=== PATIENT | male | born 1945 | race Caucasian/White ===

== ENCOUNTER 2016-05-16 01:05 | Inpatient (IN) | payer OTHER ==
[2016-05-16] MEDS ORDERED: LR 1,000 ML IV ONE (05:57)
[2016-05-16] MEDS ORDERED: LIDOCAINE 1% 5 ML SDV ID PRN (05:57)
[2016-05-16 06:17] LABS: INR 1.13 (0.83-1.16); PROTIME(PATIENT) 14.4 SEC (12.0-15.0)
[2016-05-16] MEDS ORDERED: BUPIVACAINE/EPI 0.25% 30 ML SDV ONE (06:35)
[2016-05-16] MEDS ORDERED: THROMBIN (RECOMBINANT) 5,000 UNIT VIAL TP ONE ×2 (06:35→09:02)
[2016-05-16] MEDS ORDERED: BACITRACIN 50,000 UNITS/10 ML SYR IRR ONE ×2 (06:36→09:34)
[2016-05-16] MEDS ORDERED: ROCURONIUM 50 MG/5 ML VIAL ONE (06:54)
[2016-05-16] MEDS ORDERED: DEXAMETHASONE 4 MG/ML VIAL ONE ×2 (06:54)
[2016-05-16] MEDS ORDERED: fentaNYL 100 MCG/2 ML INJ ONE ×3 (06:54→10:49)
[2016-05-16] MEDS ORDERED: PROPOFOL/EMULSION 500 MG/50 ML BOTTLE IV ONE ×2 (06:54→08:36)
[2016-05-16] MEDS ORDERED: METOCLOPRAMIDE 10 MG/2 ML VIAL ONE (06:54)
[2016-05-16] MEDS ORDERED: REMIFENTANIL HCL 1 MG VIAL ONE ×2 (06:54→08:36)
[2016-05-16] MEDS ORDERED: LIDOCAINE 2% 100 MG/5 ML SYR IVP ONE (06:55)
[2016-05-16] MEDS ORDERED: CEFAZOLIN 2 GM/DEXTROSE/100 ML BAG IV ONE (07:00)
[2016-05-16] MEDS ORDERED: MIDAZOLAM 2 MG/2 ML VIAL ONE (07:09)
[2016-05-16] MEDS ORDERED: ACETAMINOPHEN 325 MG TAB PO PRN (10:35)
[2016-05-16] MEDS ORDERED: BISACODYL 10 MG SUPP PR PRN (10:35)
[2016-05-16] MEDS ORDERED: ONDANSETRON 4 MG/2 ML VIAL IVP PRN (10:35)
[2016-05-16] MEDS ORDERED: LACTULOSE 20 GM/30 ML UDCUP PO PRN (10:35)
[2016-05-16] MEDS ORDERED: HYDROmorphONE/DILAUDID 1 MG/ML SYR IVP PRN (10:35)
[2016-05-16] MEDS ORDERED: METHOCARBAMOL 750 MG TAB PO PRN (10:35)
[2016-05-16] MEDS ORDERED: ONDANSETRON DISINTEGRATING 4 MG TAB PO PRN (10:35)
[2016-05-16] MEDS ORDERED: DIAZEPAM 10 MG/2 ML SYR IVP PRN (10:35)
[2016-05-16] MEDS ORDERED: HYDROCODONE/APAP 10/325 TAB PO PRN (10:35)
[2016-05-16] MEDS ORDERED: diphenhydrAMINE 25 MG CAP PO PRN (10:35)
[2016-05-16] MEDS ORDERED: MAGNESIUM HYDROXIDE 30 ML UDCUP PO PRN (10:35)
--- NOTE | 2016-05-16 10:41 | POSTOPPROG ---
Post Op Note Date of Operation: 05/16/16 Surgeon: Zach Wagner Feed Handler: Nicholas Anesthesiologist: Manjula Anesthesia: GET(General Endotracheal) Pre-op Diagnosis: cervical stenosis Post-op Diagnosis: same Indication: neck pain, myelopathy Procedure: C3/4, 4/5, 5/6 ACDF Findings: DJD/stenosis Inf/Abcess present in the surg proc area at time of surgery?: No EBL: Minimal (< 50 ml) Complications: None Drains: Cruzito Villanueva
--- NOTE | 2016-05-16 10:42 | SOAPPROG ---
CHARLEY Progress Note Assessment/Plan: Assessment: 70 yo M sp C3-6 ACDF Plan: stable hard collar for 6 weeks PT/OT please call with neuro changes pt seen by DR Estevez in pacu 05/16/16 10:41 Subjective: + neck pain, no arm pain. Objective: PT 14.4 SEC (12.0-15.0) 05/16/16 06:00 INR 1.13 (0.83-1.16) 05/16/16 06:00 somnolent PERRL, no facial droop SHAMIKA x 4 + light touch C/D/I ICD10 Worksheet Patient Problems: Problems Problem Status Diagnosed Cervical vertebral fusion Acute Chest pain Acute - ICD10 Problem Qualifiers (1) Cervical vertebral fusion
[2016-05-16] MEDS ORDERED: NS W/ 20 KCl/L 1,000 ML IV SCH (10:45)
[2016-05-16] MEDS ORDERED: DIAZEPAM 10 MG/2 ML SYR ONE (11:14)
--- NOTE | 2016-05-16 11:29 | DX ---
Fluoroscopy Provided for Cervical Spine Surgery May 16, 2016 Indication: Localization for anterior cervical spine fusion. Technique: 10.8 seconds of fluoroscopy time utilized. Cumulative dose: 0.85 mGy. Findings: Three crosstable lateral intraoperative spot films were obtained. The initial spot film re veals a radiopaque localizer anterior to the C4-C5 disk space. Two subsequent films reveal placement of an anterior cervical diskectomy and fusion construct extending from C3 to C6. Impression: Fluoroscopy provided for intraoperative localization.
[2016-05-16] MEDS: DIAZEPAM 5 MG TAB PO PRN ×2 (12:40→21:24)
--- NOTE | 2016-05-16 13:43 | GOP ---
[f rep st] OPERATIVE REPORT DATE OF OPERATION: 05/16/2016 SURGEON: Zach Wagner MD MARKETING SYSTEMS ANALYST: Harsha Peterson. ANESTHESIA: General endotracheal. PREOPERATIVE DIAGNOSIS: 1. Progressive cervical spondylitic myelopathy. 2. Multilevel cervical spondylosis and severe spinal stenosis with spinal cord compression. POSTOPERATIVE DIAGNOSIS: 1. Progressive cervical spondylitic myelopathy. 2. Multilevel cervical spondylosis and severe spinal stenosis with spinal cord compression. PROCEDURE PERFORMED: Mini open exposure for C3-4, C4-5, and C5-6 complete anterior cervical diskectomy and arthrodesis with structural PEEK interbody spacers and local autograft at each level and placement of an L&K CastleLoc-P anterior cervical plate from C3 through C6 with self-drilling screws, partial C4 and C5 vertebral corpectomies for decompression of spinal canal, use of intraoperative microscopy and fluoroscopy. FINDINGS: ESTIMATED BLOOD LOSS: 75 cc. INDICATIONS: The patient is a 70-year-old man with severe multilevel cervical spondylosis and spinal stenosis with spinal cord compression and myelopathic symptoms. He also has very poor sagittal alignment (cervical lordosis) and presents now for multilevel cervical decompression, stabilization, and realignment. He also has fairly significant degenerative disk disease and spinal stenosis at the C6-7 level, but I do not think this is symptomatic at this time, and in an effort to minimize the potential complications associated with this surgery, we are not extending the surgery down to the C6-7 level. The patient does understand that there is a possibility he could require further surgery at that level down the road. DESCRIPTION OF PROCEDURE: After informed consent was obtained, the patient was taken to the operating room and placed in the supine position with the head in the Halter retractor system after baseline neuromonitoring signals were obtained (somatosensory evoked potentials and motor evoked potentials). The anterior cervical region was then prepped and draped in a sterile fashion after fluoroscopic localization of the correct levels in the ideal location for the skin incision. Following this, the subcutaneous and intramuscular tissues were infiltrated with local anesthesia, and a horizontal linear incision was then created at the level of the C4-5 interspace. This was carried through the platysmal layer using the monopolar electrocautery and carried in the avascular plane between the sternocleidomastoid and carotid sheath laterally and the strap muscles, trachea, and esophagus medially down to the prevertebral fascia, which was carefully incised with Metzenbaum scissors. The C3-4, C4-5, and C5-6 interspaces were again identified and re-verified using intraoperative fluoroscopy. There were extremely large osteophytes that required extensive removal and dissection in order to even access the disk spaces, which were then re-verified using intraoperative fluoroscopy. Care was taken to stay out of the C6-7 interspace so as to not hasten degeneration. The exposure took approximately 2-3 times as long as normal due to the extensive osteophytes and required dissection and bone removal. Following this, the distraction pins were serially inserted first at C3-4, then C4-5, then C5-6 during which time complete diskectomies were performed with preparation of endplates and removal of the posterior longitudinal ligament at each level. Bilateral foraminotomies were also performed, along with removal of the posteriorly protruding osteophytes. Again, these osteophytes were much larger than normal and this required very meticulous dissection under high-power microscopy, and in order to adequately decompress the spinal canal and cord. This took approximately 2- 3 times as long as normal, again, and was more difficult, but we did achieve an excellent decompression. The wound and disk spaces were copiously irrigated with antibiotic irrigation and under fluoroscopic image guidance structural PEEK interbody spacers packed with local autograft from the osteophytectomies were then placed in the interspaces individually. Following verification of good position, the distraction was removed and an appropriately sized CastleLoc- P L&K anterior cervical plate was then placed and secured from C3 through C6 with an appropriate amount of lordosis. Because we had to do such extensive drilling of the large anteriorly protruding osteophytes, there was not a whole lot of cortical bone in some of the locations where the screws were placed, and did not achieve that great of screw purchase. We did the best we could. Following verification of good position of the plate screws and interbody spacers, the wound was again copiously irrigated, and the residual local autograft was then gently placed in the anterior hole of the plate at each of the 3 levels. A drain was then placed. The subcutaneous and intramuscular tissues were re-infiltrated with local anesthesia, and the wound was closed in a layered fashion using interrupted Vicryl sutures followed by Steri-Strips on the skin. COMPLICATIONS: None. DISPOSITION: The patient was extubated, and transferred to the recovery room in stable condition. It was explained to the patient's significant other that I want him in a rigid collar for 6 weeks followed by a soft collar for 6 weeks given the high risk for screw backout or nonunion or hardware failure, given the patient's significant disease and required bone removal and lack of cortical bone in some of the places where the screws were placed. /[id number]/MODL MTDD
[2016-05-16] MEDS: POLYETHYLENE GLYCOL 3350 17 GM PKT PO SCH ×2 (15:47→20:32)
[2016-05-16] MEDS: OXYCODONE/APAP 5/325 TAB PO PRN ×2 (17:24→21:24)
[2016-05-16] MEDS: ATORVASTATIN CALCIUM 40 MG TAB PO SCH (17:24)
[2016-05-16] MEDS: GABAPENTIN 400 MG CAP PO SCH (20:23)
[2016-05-16] MEDS: FAMOTIDINE 20 MG TAB PO SCH (20:24)
[2016-05-16] MEDS: SENNOSIDES/DOCUSATE SODIUM TAB PO SCH (20:25)
[2016-05-16] MEDS ORDERED: FAMOTIDINE 20 MG/NACL 50 ML IV SCH (21:00)
[2016-05-17] MEDS: DIAZEPAM 5 MG TAB PO PRN ×2 (07:16→15:29)
[2016-05-17] MEDS: DILTIAZEM CD 180 MG CAP PO SCH (08:59)
[2016-05-17] MEDS: CHOLECALCIFEROL VIT D3 1,000 UNITS TAB PO SCH (09:00)
[2016-05-17] MEDS: FAMOTIDINE 20 MG TAB PO SCH ×2 (09:00→21:02)
[2016-05-17] MEDS: LOSARTAN POTASSIUM 50 MG TAB PO SCH (09:01)
[2016-05-17] MEDS: ASCORBIC ACID 500 MG TAB PO SCH (09:01)
[2016-05-17] MEDS: TRIAMTERENE/HCTZ 37.5/25 1 EACH TAB PO SCH (09:01)
[2016-05-17] MEDS: FERROUS SULFATE 325 MG TAB PO SCH (09:03)
[2016-05-17] MEDS: SENNOSIDES/DOCUSATE SODIUM TAB PO SCH ×2 (09:06→20:45)
[2016-05-17] MEDS: POLYETHYLENE GLYCOL 3350 17 GM PKT PO SCH ×3 (09:06→21:02)
[2016-05-17] MEDS: Fenofibrate,Micronized [Fenofibrate] 200 MG PO SCH ×2 (09:27→16:13)
--- NOTE | 2016-05-17 10:19 | DX ---
Cervical spine upright AP and lateral 0932 hours. History: Postop fusion. Findings: Anterior cervical fusion plate is in good position from C3 through C6 along with disk repla cement material. There is no subluxation. Precervical soft tissue swelling is noted. A drain is seen along the left anterior paravertebral soft tissues. Moderate to marked intervertebral disk space narr owing with hypertrophic osteophytes are noted at C6-C7 and at C7-T1 along with some facet hypertrophy . Impression: 1. Good alignment of anterior cervical fusion plate from C3 through C6. 2. Mild precervical soft tissue swelling as expected postoperatively. 3. Moderate to marked degenerative disk disease noted at C6-C7 and at C7-T1 along with facet hypertro phy.
--- NOTE | 2016-05-17 11:23 | NEUSURGPN ---
Date of Surgery: 05/16/16 Post Op Day: 1 Assessment/Plan: Doing well POD #1 s/p C3-6 ACDF Swallowing ok at this time Unchanged bilateral finger paresthesias Plan: PT/OT/St Continue NABEEL Lovenox POD #[address] Estevez Subjective: sitting up in bed,eating breakfast. feeling fine no change in bilateral finger paresthesias Objective: post op xrays 05/27/16 show stable position of C3-6 hardware/grafts Neuro: KEARNEY, sens +LT with unchanged bilateral finger paresthesias and mild senior operations manager weakness Dressing: CDI NABEEL: 80ml Neurosurgery Physical Exam - Vitals, I&O, Labs I and O 05/16/16 05/17/16 05/18/16 05:59 05:59 05:59 Intake Total 2675 Output Total 355 Balance 2320 Intake: Oral (ml) 400 IV Intake (ml) 2225 IV Infused (ml) 50 ceFAZolin 1 GM/DEXTROSE 50 50 ml @ 200 mls/hr IV Q8H [facility] Rx#:[id number] Output: Urine (ml) 250 Bedside Commode 250 Estimated Blood Loss (ml) 25 Wound Drainage (ml) 80 #1 Neck Cruzito Villanueva 80 Other: Output Comment Diapers/Briefs pt feels he is constantly urinating not a new issue Vital Signs Temp Pulse Resp BP Pulse Ox 36.8 C 81 16 146/81 H 93 05/17/16 07:39 05/17/16 07:39 05/17/16 07:39 05/17/16 07:39 05/17/16 07:39 ICD10 Worksheet Patient Problems: Problems Problem Status Diagnosed Cervical vertebral fusion Acute Chest pain Acute
[2016-05-17] MEDS: HEPARIN 5,000 UNIT/0.5 ML SYR SC SCH ×2 (15:21→21:04)
[2016-05-17] MEDS: ATORVASTATIN CALCIUM 40 MG TAB PO SCH (18:48)
[2016-05-17] MEDS: OXYCODONE/APAP 5/325 TAB PO PRN (19:08)
[2016-05-17] MEDS: GABAPENTIN 400 MG CAP PO SCH (21:02)
[2016-05-17 23:17] VITALS: RESP 16
[2016-05-18] MEDS: HEPARIN 5,000 UNIT/0.5 ML SYR SC SCH (05:05)
[2016-05-18 07:59] VITALS: BP 145/77; TEMP 97.8; O2SAT 93
[2016-05-18] MEDS: OXYCODONE/APAP 5/325 TAB PO PRN (08:42)
--- NOTE | 2016-05-18 09:17 | NEUSURGPN ---
Date of Surgery: 05/16/16 Post Op Day: 2 Assessment/Plan: Assessment: 70 yo male that is POD #2 s/p C3-6 ACDF Plan: -pt states pain is doing well with current pain plan -tolerating collar -PT/OT-CPM -ok from Dr Estevez for removal of drain-drain removed intact -swallowing ok at this time -unchanged bilateral finger paresthesias -lovenox POD #[address] Estevez -call with any questions or concerns -take medications as directed -follow up in 2-3 weeks for a recheck and evaluation Subjective: Awake and alert. NAD. Eating/drinking and voiding. No f/c/n/v/d. No pressley/neck/ chest/abd or gu complaints. Objective: AAO x 3, PERRLA/EOMI no droop CN 2-12 grossly intact +lt touch with unchanged bilateral finger paresthesias and mild rental agent weakness other nam 5/5 bilat dressing: CDI NABEEL removed intact and easily removed without resistance Neuro Check Frequency: per routine Urinary Catheter in Place: No - Physician Discussed Patient with DrNicolás: Kristy Neurosurgery Physical Exam - Vitals, I&O, Labs I and O 05/17/16 05/18/16 05/19/16 05:59 05:59 05:59 Intake Total 2675 Output Total 355 716 Balance 2320 -716 Intake: Oral (ml) 400 IV Intake (ml) 2225 IV Infused (ml) 50 ceFAZolin 1 GM/DEXTROSE 50 50 ml @ 200 mls/hr IV Q8H [facility] Rx#:[id number] Output: Urine (ml) 250 676 Bedside Commode 250 675 Toilet 1 Estimated Blood Loss (ml) 25 Wound Drainage (ml) 80 40 #1 Neck Cruzito Villanueva 80 40 Other: Output Comment Diapers/Briefs pt feels he is constantly urinating not a new issue Toilet reported by patient Number of Voids Diapers/Briefs 4 Number of Stools Toilet 1 Vital Signs Temp Pulse Resp BP Pulse Ox 36.6 C 75 16 145/77 H 93 05/18/16 07:58 05/18/16 07:58 05/18/16 07:58 05/18/16 07:58 05/18/16 07:58 ICD10 Worksheet Patient Problems: Problems Problem Status Diagnosed Cervical vertebral fusion Acute Chest pain Acute
[2016-05-18] MEDS: DILTIAZEM CD 180 MG CAP PO SCH (09:22)
[2016-05-18] MEDS: FERROUS SULFATE 325 MG TAB PO SCH (09:22)
[2016-05-18] MEDS: CHOLECALCIFEROL VIT D3 1,000 UNITS TAB PO SCH (09:22)
[2016-05-18] MEDS: LOSARTAN POTASSIUM 50 MG TAB PO SCH (09:24)
[2016-05-18] MEDS: FAMOTIDINE 20 MG TAB PO SCH (09:24)
[2016-05-18] MEDS: ASCORBIC ACID 500 MG TAB PO SCH (09:24)
[2016-05-18] MEDS: TRIAMTERENE/HCTZ 37.5/25 1 EACH TAB PO SCH (09:24)
[2016-05-18] MEDS: Fenofibrate,Micronized [Fenofibrate] 200 MG PO SCH (09:29)
[2016-05-18 09:31] VITALS: PULSE 80
[2016-05-18] MEDS: SENNOSIDES/DOCUSATE SODIUM TAB PO SCH (09:31)
[2016-05-18] MEDS: POLYETHYLENE GLYCOL 3350 17 GM PKT PO SCH (09:31)
[2016-05-18] MEDS: DIAZEPAM 5 MG TAB PO PRN (12:27)
[2016-05-19] MEDS ORDERED: ENOXAPARIN 40 MG/0.4 ML SYR SC SCH (09:00)
== END 2016-05-18 13:44 | disposition home or self-care (01) | DRG 472 ==
LOC: F3N 05:14
PROVIDERS: ADMIT Neurological Surgery; ATTEND Neurological Surgery
DX: M48.02 Spinal stenosis, cervical region (principal); M47.12 Other spondylosis with myelopathy, cervical region
CPT/HCPCS: 97161-GP; 97165-GO; 97535-GO; C1713; G8978-GP-CI; G8979-GP-CI; G8980-GP-CI; G8987-GO-CJ; G8988-GO-CI; G8989-GO-CI; G8994-GO-CI; G8995-GO-CI; J0690; J1100; J2001; J2250; J2704; J2765; J3010

== ENCOUNTER → 2016-06-07 | Outpatient (CLI) | payer OTHER ==
--- NOTE | 2016-06-07 09:44 | DX ---
Cervical Spine, Two views in a neck collar History: Follow up fusion. M 43.22 Comparison: May 17, 2016 Findings: Alignment is stable and anatomic. An anterior compression plate with transvertebral body sc rews and interbody bone plugs between C3 and C6 are in stable position with intact hardware and stabl e bone plugs. Prevertebral soft tissue swelling is significantly improved and a prevertebral surgical drain has been removed. Degenerative changes at the C6-C7 level are stable. Impression: Improving prevertebral soft tissue swelling. Stable anterior fusion construct.
== END ==
LOC: FIMAGING 09:01
PROVIDERS: ATTEND Physician Assistant Surgical
DX: Z09 Encounter for follow-up examination after completed treatment for conditions other than malignant neoplasm (principal); Z98.1 Arthrodesis status

== ENCOUNTER 2016-07-23 11:01 | Inpatient (IN) | payer OTHER ==
[2016-07-17 10:07] LABS: % IMMATURE GRANULYOCYTES 0.6 % (0.0-1.1); ABSOLUTE IMMATURE GRANULOCYTES 0.05 10^3/uL (0.00-0.10); ADD DIFF? NO; ADD MORPH? NO; ADD SCAN? NO; ATYPICAL LYMPHOCYTE FLAG 10 (0-99); FRAGMENT RBC FLAG 0 (0-99); HEMATOCRIT 42.4 % (40.0-51.0); HEMOGLOBIN 14.2 g/dL (13.7-17.5); LEFT SHIFT FLG 0 (0-99); LIPEMIA HEMOLYSIS FLAG 80 (0-99); MEAN CELL HEMOGLOBIN 29.2 pg (27.9-34.1); MEAN CELL HEMOGLOBIN CONCENTR. 33.5 g/dL (32.4-36.7); MEAN CELL VOLUME 87.2 fL (81.5-99.8); MEAN PLATELET VOLUME 10.1 fL (8.7-11.7); PLATELET CLUMPS FLAG 0 (0-99); PLATELET COUNT 305 10^3/uL (150-400); RED BLOOD CELL COUNT 4.86 10^6/uL (4.40-6.38); RED CELL DISTRIBUTION WIDTH 12.9 % (11.5-15.2)
[2016-07-17 10:21] LABS: ANION GAP 12 mEq/L (8-16); CARBON DIOXIDE 25 mEq/l (22-31); CHLORIDE 103 mEq/L (97-110); CREATININE 1.7 mg/dL (0.7-1.3); GLOMERULAR FILTRATION RATE 40; GLUCOSE 147 mg/dL (70-100); POTASSIUM 4.2 mEq/L (3.5-5.2); SODIUM 140 mEq/L (134-144)
[~2016-07-23 11:01] MED LIST: ceFAZolin 2 GM/DEXTROSE 100 ML IV ONE; fentaNYL 100 MCG/2 ML INJ IT ONE; morphINE PF 5 MG/10 ML INJ IT ONE
[2016-07-23] MEDS ORDERED: LR 1,000 ML IV ONE (11:41)
[2016-07-23] MEDS ORDERED: LIDOCAINE 1% 5 ML SDV ID PRN (11:41)
[2016-07-23] MEDS ORDERED: CEFAZOLIN 2 GM/DEXTROSE/100 ML BAG IV ONE (12:08)
[2016-07-23 12:20] LABS: INR 1.18 (0.83-1.16)
[2016-07-23] MEDS ORDERED: METOCLOPRAMIDE 10 MG/2 ML VIAL ONE (14:10)
[2016-07-23] MEDS ORDERED: REMIFENTANIL HCL 1 MG VIAL ONE (14:10)
[2016-07-23] MEDS ORDERED: DEXAMETHASONE 4 MG/ML VIAL ONE ×2 (14:10)
[2016-07-23] MEDS ORDERED: PROPOFOL/EMULSION 500 MG/50 ML BOTTLE IV ONE ×2 (14:10→16:36)
[2016-07-23] MEDS ORDERED: ROCURONIUM 100 MG/10 ML VIAL ONE (14:10)
[2016-07-23] MEDS ORDERED: LIDOCAINE 2% 100 MG/5 ML SYR ONE (14:10)
[2016-07-23] MEDS ORDERED: BUPIVACAINE/EPI 0.5% 30 ML SDV ONE (14:40)
[2016-07-23] MEDS ORDERED: THROMBIN (RECOMBINANT) 5,000 UNIT VIAL TP ONE ×2 (14:40→16:40)
[2016-07-23] MEDS ORDERED: BUPIVACAINE 0.25% 30 ML SDV ONE ×2 (14:40→15:04)
[2016-07-23] MEDS ORDERED: BACITRACIN 50,000 UNITS/10 ML SYR IRR ONE (14:41)
[2016-07-23] MEDS ORDERED: MIDAZOLAM 2 MG/2 ML VIAL ONE (14:54)
[2016-07-23] MEDS ORDERED: CITRATE DEXTROSE SOLN 500 ML BAG ONE (15:04)
[2016-07-23] MEDS ORDERED: PHENYLEPHRINE 10 MG/ML SDV ONE (16:19)
[2016-07-23] MEDS ORDERED: fentaNYL 100 MCG/2 ML INJ ONE (17:45)
[2016-07-23] MEDS ORDERED: morphINE PF 10 MG/10 ML INJ ONE (17:45)
[2016-07-23] MEDS ORDERED: SUGAMMADEX SODIUM 200 MG/2 ML VIAL IVP ONE (18:36)
[2016-07-23] MEDS ORDERED: ONDANSETRON DISINTEGRATING 4 MG TAB PO PRN (19:02)
[2016-07-23] MEDS ORDERED: LACTULOSE 20 GM/30 ML UDCUP PO PRN (19:02)
[2016-07-23] MEDS ORDERED: DIAZEPAM 10 MG/2 ML SYR IVP PRN (19:02)
[2016-07-23] MEDS ORDERED: DIAZEPAM 5 MG TAB PO PRN (19:02)
[2016-07-23] MEDS ORDERED: ACETAMINOPHEN 325 MG TAB PO PRN (19:02)
[2016-07-23] MEDS ORDERED: MAGNESIUM HYDROXIDE 30 ML UDCUP PO PRN (19:02)
[2016-07-23] MEDS ORDERED: POLYETHYLENE GLYCOL 3350 17 GM PKT PO PRN (19:02)
[2016-07-23] MEDS ORDERED: MAG HYDROX/AL HYDROX/SIMETH 30 ML UDCUP PO PRN (19:02)
[2016-07-23] MEDS ORDERED: diphenhydrAMINE 25 MG CAP PO PRN (19:02)
[2016-07-23] MEDS ORDERED: ONDANSETRON 4 MG/2 ML VIAL IVP PRN (19:02)
[2016-07-23] MEDS ORDERED: HYDROmorphONE/DILAUDID 1 MG/ML SYR IVP PRN (19:02)
[2016-07-23] MEDS ORDERED: BISACODYL 10 MG SUPP PR PRN (19:02)
[2016-07-23] MEDS ORDERED: PROCHLORPERAZINE MALEATE 10 MG TAB PO PRN (19:02)
[2016-07-23] MEDS ORDERED: NS W/ 20 KCl/L 1,000 ML IV SCH (19:15)
--- NOTE | 2016-07-23 19:18 | POSTOPPROG ---
Post Op Note Date of Operation: 07/23/16 Surgeon: Zach Wagner Installation Helper: Donny Villareal PA-C, Chery Baum PA-C Anesthesiologist: Manjula Anesthesia: GET(General Endotracheal) Pre-op Diagnosis: lumbar degenerative disc disease Post-op Diagnosis: same Indication: pain, radiculopathy Procedure: L4-S1 TLIF and posterior fusion Findings: Please see Dr. Wagner's operative report Inf/Abcess present in the surg proc area at time of surgery?: No Depth: Organ Space EBL: 100-500 Complications: none Drains: Cruzito Villanueva Specimen(s): none PA Addendum - Addendum .: S: Pt awake in PACU, denies pain O: AAOx3 NAD VSS MAEx4 Motor 5/5 BUE/BLE +LT Incision dressed A: 70 yo M s/p L4-S1 TLIF and posterior fusion P: PT/OT Pain management TEDs, SCDs, lovenox in AM Post op xrays pending Brace to be fitted by Jeramy in AM, to be worn when OOB Call NS with any issues D/w Dr Estevez
--- NOTE | 2016-07-23 20:03 | GOP ---
[f rep st] OPERATIVE REPORT DATE OF OPERATION: 07/23/2016 SURGEON: Zach Wagner MD TREE DEADENER: Donny Baum ANESTHESIA: General endotracheal. PREOPERATIVE DIAGNOSIS: 1. Severe multilevel lumbar degenerative joint disease. 2. Severe left greater than right lateral recess and neuroforaminal encroachment. 3. Intractable low back pain. 4. Intractable left lower extremity radiculopathy. 5. Failed conservative care. POSTOPERATIVE DIAGNOSIS: 1. Severe multilevel lumbar degenerative joint disease. 2. Severe left greater than right lateral recess and neuroforaminal encroachment. 3. Intractable low back pain. 4. Intractable left lower extremity radiculopathy. 5. Failed conservative care. PROCEDURE PERFORMED: Left-sided L4-5 and L5-S1 far lateral transpedicular decompression with L4 thr ough S1 posterior segmental (pedicle screw) fixation, and posterolateral fusion with local autograft and bone morphogenic protein. L4-5 and L5-S1 posterior/transforaminal lumbar interbody fusion with 2 structural PEEK interbody spacers with local autograft and bone morphogenic protein. Use of intr aoperative microscopy, fluoroscopy, and computer volumetric stereotactic navigation with intraoperat jesus neurophysiologic testing. Injection of intrathecal narcotic, analgesics, and subcutaneous and i ntramuscular local anesthesia for postoperative pain control. FINDINGS: ESTIMATED BLOOD LOSS: 250 cc. INDICATIONS: The patient is a 70-year-old male with intractable low back pain and left lower extrem ity radicular discomfort, who has failed to improve with extensive conservative care secondary to mu ltilevel severe degenerative joint disease, and neuroforaminal and lateral recess impingement requir ing destabilizing decompression at the L4-5 and L5-S1 levels, and instrumentation and fusion. The p atient understands there is no guarantee this will result in resolution of his symptoms and could ev en make them worse. DESCRIPTION OF PROCEDURE: After informed consent was obtained, the patient was taken to the operati ng room and placed in the prone position on the Cruzito table. The lumbosacral area was prepped and draped in a sterile fashion. After fluoroscopic localization of the correct levels, the subcutaneo us and intramuscular tissues were infiltrated with local anesthesia. A midline linear incision was then created over the L4-S1 spinous processes. This was carried down to the fascial layer, which was incised using monopolar electrocautery, and carried in a subperioste al plane along the spinous processes and out the laminae bilaterally. Intraoperative fluoroscopy wa s again utilized to verify the correct levels. Following this, the dissection was carried out over the facet joints. After re-verifying the correc t levels, the microscope was brought in and under high-power microscopic visualization the left L4-5 and L5-S1 facet joints were completely unroofed and wide decompressions were performed of the L4-L5 and S1 neuroforamen and lateral recesses, as well as the central canal. Following adequate decompression and meticulous hemostasis, the [employer] neuronavigational system was brought in and using computer volumetric stereotactic navigation, pedicle screws were placed at the L4, L5, and S1 levels bilaterally. Each individual screw was tested neurophysiologically with mono polar electrostimulation and interpretation of the potentials by the surgeon. The left S1 screw sti mulated slightly low at 14 milliamperes, and the medial border of the pedicle was visualized under h igh-power microscopy and noted to be good. Based on the intraoperative fluoroscopy, as well as the neurostimulation, I felt that it was in the patient's best interest to leave this in place, as well as a slightly lateral-appearing screw at L5, which was removed and replaced. Following this, serial distraction was created first across the L5-S1 level, then the L4-5 level dur ing which time, complete diskectomies were performed with preparation of the endplates and placement of 2 structural PEEK interbody spacers with local autograft and bone morphogenic protein for L4-5 a nd L5-S1 posterior/transforaminal lumbar interbody fusions. Longer rods were then placed spanning L 4-S1 with a slight amount of compression across the interspaces in order to facilitate bony union an d to minimize the potential for posterior graft migration. The wound was then copiously irrigated with antibiotic irrigation. Meticulous hemostasis was again achieved. Following re-verification of good position of the screws, rods, and interbody spacers usi ng biplanar fluoroscopy, the remaining facet joints and laminae were extensively decorticated, and t he residual local autograft along with bone morphogenic protein and morselized allograft was placed out laterally for a posterolateral fusion from L4-S1. 200 mcg of Duramorph along with 50 mcg of fentanyl were injected intrathecally for postoperative britany n control. The subcutaneous and intramuscular tissues were re-infiltrated with local anesthesia. A drain was placed, and the wound was closed in a layered fashion using interrupted Vicryl sutures, f ollowed by Steri-Strips on the skin. COMPLICATIONS: None. DISPOSITION: The patient is currently in the process of being repositioned for extubation. /[id number]/MODL
[2016-07-23] MEDS ORDERED: FAMOTIDINE 20 MG/NACL 50 ML IV SCH (21:00)
[2016-07-23] MEDS: POLYETHYLENE GLYCOL 3350 17 GM PKT PO SCH (21:47)
[2016-07-23] MEDS: GABAPENTIN 400 MG CAP PO SCH (21:47)
[2016-07-23] MEDS: morphINE SR 15 MG TAB PO SCH (21:47)
[2016-07-23] MEDS: SENNOSIDES/DOCUSATE SODIUM TAB PO SCH (21:47)
[2016-07-24 04:59] LABS: ABSOLUTE IMMATURE GRANULOCYTES 0.13 10^3/uL (0.00-0.10); ADD DIFF? NO; ADD MORPH? NO; ADD SCAN? NO; ATYPICAL LYMPHOCYTE FLAG 0 (0-99); FRAGMENT RBC FLAG 0 (0-99); HEMOGLOBIN 11.4 g/dL (13.7-17.5); LEFT SHIFT FLG 0 (0-99); LIPEMIA HEMOLYSIS FLAG 80 (0-99); MEAN CELL HEMOGLOBIN 30.2 pg (27.9-34.1); MEAN CELL HEMOGLOBIN CONCENTR. 33.5 g/dL (32.4-36.7); MEAN CELL VOLUME 90.2 fL (81.5-99.8); MEAN PLATELET VOLUME 10.6 fL (8.7-11.7); PLATELET CLUMPS FLAG 0 (0-99); PLATELET COUNT 243 10^3/uL (150-400); RED BLOOD CELL COUNT 3.77 10^6/uL (4.40-6.38)
[2016-07-24 05:28] LABS: ANION GAP 9 mEq/L (8-16); CARBON DIOXIDE 24 mEq/l (22-31); CHLORIDE 106 mEq/L (97-110); CREATININE 1.7 mg/dL (0.7-1.3); GLOMERULAR FILTRATION RATE 40; GLUCOSE 166 mg/dL (70-100); POTASSIUM 4.9 mEq/L (3.5-5.2); SODIUM 139 mEq/L (134-144)
[2016-07-24] MEDS: METHOCARBAMOL 750 MG TAB PO PRN ×3 (06:21→21:06)
[2016-07-24] MEDS: OXYCODONE/APAP 5/325 TAB PO PRN ×2 (06:21→12:52)
--- NOTE | 2016-07-24 07:26 | SOAPPROG ---
SOAP Progress Note Assessment/Plan: Assessment: 70 yo male POD #1 sp L4-S1 fusion pain well controlled doing well Plan: Patient was seen by Dr. Knox this AM PT/OT LSO when out of bed Continue NABEEL to bulb suction Lumbar xrays today Lovenox starts today. 07/24/16 07:24 Subjective: sitting up in bed, doing well, pain well controlled no new numbness or tingling Objective: Vital Signs Temp Pulse Resp BP Pulse Ox 36.9 C 83 16 121/74 H 94 07/24/16 03:14 07/24/16 03:14 07/24/16 03:14 07/24/16 03:14 07/24/16 03:14 Laboratory Results 07/24/16 04:35 07/24/16 04:35 07/23/16 07/24/16 07/25/16 05:59 05:59 05:59 Intake Total 2110 Output Total 490 40 Balance 1620 -40 PT 15.0 SEC (12.0-15.0) 07/23/16 11:45 INR 1.18 (0.83-1.16) H 07/23/16 11:45 Neuro: KEARNEY, sensation +LT NABEEL: 40 ml this AM ICD10 Worksheet Patient Problems: Problems Problem Status Onset Cervical vertebral fusion Acute Chest pain Acute
[2016-07-24] MEDS: GABAPENTIN 400 MG CAP PO SCH ×3 (07:51→21:06)
[2016-07-24] MEDS: POLYETHYLENE GLYCOL 3350 17 GM PKT PO SCH ×3 (07:51→21:06)
[2016-07-24] MEDS: FAMOTIDINE 20 MG TAB PO SCH ×2 (07:52→21:06)
[2016-07-24] MEDS: VITAMIN B COMPLEX 1 EA CAP/TAB PO SCH (07:52)
[2016-07-24] MEDS: SENNOSIDES/DOCUSATE SODIUM TAB PO SCH ×2 (07:53→21:06)
[2016-07-24] MEDS: ASCORBIC ACID 500 MG TAB PO SCH (07:53)
[2016-07-24] MEDS: morphINE SR 15 MG TAB PO SCH ×2 (07:54→21:06)
[2016-07-24] MEDS: DILTIAZEM CD 180 MG CAP PO SCH (07:54)
[2016-07-24] MEDS: CHOLECALCIFEROL VIT D3 1,000 UNITS TAB PO SCH (07:54)
[2016-07-24] MEDS: TRIAMTERENE/HCTZ 37.5/25 1 EACH TAB PO SCH (07:55)
[2016-07-24] MEDS: Fenofibrate,Micronized [Fenofibrate] 200 MG PO SCH (07:55)
[2016-07-24] MEDS: LOSARTAN POTASSIUM 50 MG TAB PO SCH (08:06)
[2016-07-24] MEDS: ENOXAPARIN 40 MG/0.4 ML SYR SC SCH (08:27)
[2016-07-24] MEDS: ATORVASTATIN CALCIUM 40 MG TAB PO SCH (15:18)
[2016-07-25] MEDS: OXYCODONE/APAP 5/325 TAB PO PRN ×3 (00:29→11:25)
[2016-07-25] MEDS: METHOCARBAMOL 750 MG TAB PO PRN ×2 (05:48→11:25)
[2016-07-25 08:04] VITALS: BP 110/69; RESP 18; TEMP 97.9; O2SAT 94
[2016-07-25] MEDS: GABAPENTIN 400 MG CAP PO SCH (09:02)
[2016-07-25] MEDS: ASCORBIC ACID 500 MG TAB PO SCH (09:03)
[2016-07-25] MEDS: VITAMIN B COMPLEX 1 EA CAP/TAB PO SCH (09:03)
[2016-07-25] MEDS: LOSARTAN POTASSIUM 50 MG TAB PO SCH (09:03)
[2016-07-25] MEDS: CHOLECALCIFEROL VIT D3 1,000 UNITS TAB PO SCH (09:03)
[2016-07-25] MEDS: TRIAMTERENE/HCTZ 37.5/25 1 EACH TAB PO SCH (09:03)
[2016-07-25] MEDS: DILTIAZEM CD 180 MG CAP PO SCH (09:03)
[2016-07-25] MEDS: ENOXAPARIN 40 MG/0.4 ML SYR SC SCH (09:04)
[2016-07-25] MEDS: FAMOTIDINE 20 MG TAB PO SCH (09:04)
[2016-07-25] MEDS: SENNOSIDES/DOCUSATE SODIUM TAB PO SCH (09:04)
[2016-07-25] MEDS: morphINE SR 15 MG TAB PO SCH (09:04)
[2016-07-25] MEDS: POLYETHYLENE GLYCOL 3350 17 GM PKT PO SCH ×2 (09:05→16:55)
[2016-07-25 09:13] VITALS: PULSE 68
[2016-07-25] MEDS: Fenofibrate,Micronized [Fenofibrate] 200 MG PO SCH (09:15)
--- NOTE | 2016-07-25 15:32 | SOAPPROG ---
SOAP Progress Note Assessment/Plan: Assessment: 70 yo M sp L4-S1 TLIF Plan: stable PT/OT x-rays look stable dc home with home oxygen pt seen by Dr Estevez 07/25/16 15:30 07/25/16 15:31 Subjective: continued back pain, no leg pain, no weakness. Objective: Vital Signs Temp Pulse Resp BP Pulse Ox 36.6 C 68 18 110/69 94 07/25/16 08:00 07/25/16 09:03 07/25/16 08:00 07/25/16 09:03 07/25/16 08:00 Laboratory Results 07/24/16 04:35 07/24/16 04:35 07/24/16 07/25/16 07/26/16 05:59 05:59 05:59 Intake Total 2110 1950 Output Total 490 270 Balance 1620 1680 PT 15.0 SEC (12.0-15.0) 07/23/16 11:45 INR 1.18 (0.83-1.16) H 07/23/16 11:45 AAOx4, +FC PERRL, EOMI, no facial droop 5/5 + light touch C/D/I ICD10 Worksheet Patient Problems: Problems Problem Status Onset Cervical vertebral fusion Acute Chest pain Acute
--- NOTE | 2016-07-25 15:50 | PDIAF ---
- Diagnosis Diagnosis: lumbar DJD, Stenosis Code Status: Full Code - Medication Management Discharge Medications: Medications to Continue on Transfer Fenofibrate,Micronized [Fenofibrate] 200 mg PO DAILY 10/30/14 [Last Taken 08:30] Losartan Potassium [Cozaar 50 mg (*)] 50 mg PO DAILY 10/30/14 [Last Taken ] Ascorbic Acid [Vitamin C 500 mg (*)] 1,000 mg PO DAILY 05/06/16 [Last Taken 11/25] Atorvastatin Calcium [Lipitor 40 mg (*)] 40 mg PO DAILY16 05/06/16 [Last Taken 07/16/16] Cholecalciferol Vit D3 [Vitamin D3 (*)] 1,000 units PO DAILY 05/06/16 [Last Taken 07/16/16] Diltiazem HCl [Diltiazem 24Hr Cd] 360 mg PO DAILY 05/06/16 [Last Taken 07/23/16 08:30] Gabapentin [Neurontin 400 MG (*)] 1,200 mg PO BID 05/06/16 [Last Taken 07/22/16] Triamterene/Hydrochlorothiazid [Triamterene-Hctz 37.5-25 mg Tb] 1 each PO DAILY 05/06/16 [Last Taken 07/22/16] Vitamin B Complex [B Complex] 1 each PO DAILY 05/06/16 [Last Taken 07/16/16] Warfarin Sodium [Jantoven] 2 mg PO DAILY 06/17/16 [Last Taken 07/15/16] Acetaminophen [Tylenol 325mg (*)] 325 - 650 mg PO Q4HRS PRN #0 tab 07/25/16 [ Last Taken Unknown] Methocarbamol [Robaxin 750 mg (*)] 750 mg PO QID PRN #60 tab 07/25/16 [Last Taken Unknown] Polyethylene Glycol 3350 [Miralax 17 gm (*)] 17 gm PO TID #0 pkt 07/25/16 [Last Taken Unknown] Sennosides/Docusate Sodium [Senokot-S] 1 - 2 tab PO BID #0 tab 07/25/16 [Last Taken Unknown] morphINE SR [Ms Contin/Oramorph 15 mg (*)] 15 mg PO BID #90 tab 07/25/16 [Last Taken Unknown] oxyCODONE IR [Oxycodone Ir (*)] 5 - 10 mg PO Q4-6PRN PRN #90 tab 07/25/16 [Last Taken Unknown] Discharge Medications: Refer to the Discharge Home Medication list for PRN reason. - Orders Diet Recommendation: no restrictions on diet Diet Texture: Regular Texture Diet - Follow Up Care Current Providers and Referrals: DAVID COOK [Primary Care Provider] -
[2016-07-25] MEDS: ATORVASTATIN CALCIUM 40 MG TAB PO SCH (16:54)
== END 2016-07-25 18:01 | disposition home or self-care (01) | DRG 460 ==
LOC: F3N 11:01
PROVIDERS: ADMIT Neurological Surgery; ATTEND Neurological Surgery
PROC: 4A1004G Monitoring of Central Nervous Electrical Activity, Intraoperative, Open Approach (ICD-10-PCS; principal; 2016-07-23 12:45)
PROC: 8E0WXBZ Computer Assisted Procedure of Trunk Region (ICD-10-PCS; principal; 2016-07-23 12:45)
PROC: 00NY0ZZ Release Lumbar Spinal Cord, Open Approach (ICD-10-PCS; principal; 2016-07-23 12:45)
PROC: 0SB20ZZ Excision of Lumbar Vertebral Disc, Open Approach (ICD-10-PCS; principal; 2016-07-23 12:45)
PROC: 0SG00AJ Fusion of Lumbar Vertebral Joint with Interbody Fusion Device, Posterior Approach, Anterior Column, Open Approach (ICD-10-PCS; principal; 2016-07-23 12:45)
PROC: 0SG30AJ Fusion of Lumbosacral Joint with Interbody Fusion Device, Posterior Approach, Anterior Column, Open Approach (ICD-10-PCS; principal; 2016-07-23 12:45)
DX: M51.36 Other intervertebral disc degeneration, lumbar region (principal); M54.16 Radiculopathy, lumbar region; I12.9 Hypertensive chronic kidney disease with stage 1 through stage 4 chronic kidney disease, or unspecified chronic kidney disease; N18.3 Chronic kidney disease, stage 3 (moderate); I25.10 Atherosclerotic heart disease of native coronary artery without angina pectoris; Z86.718 Personal history of other venous thrombosis and embolism; Z86.711 Personal history of pulmonary embolism; Z79.01 Long term (current) use of anticoagulants; Z98.1 Arthrodesis status
CPT/HCPCS: 97116-GP; 97161-GP; 97165-GO; 97530-GO; 97530-GP; C1713; C1762; G8978-GP-CJ; G8979-GP-CI; G8980-GP-CI; G8987-GO-CI; G8988-GO-CI; G8989-GO-CI; J0171; J0690; J1100; J1650; J2001; J2250; J2274; J2370; J2704; J2765; J3010; J7060

== ENCOUNTER 2016-07-30 12:44 | Emergency (ER) | payer OTHER ==
[2016-07-30 12:52] VITALS: TEMP 98.1
--- NOTE | 2016-07-30 13:23 | EDPHY ---
H & P Stated Complaint: B leg swelling (R>L), w/o pain; spinal fusion 07/23 Time Seen by Provider: 07/30/16 13:02 HPI/ROS: CHIEF COMPLAINT: Leg swelling HISTORY OF PRESENT ILLNESS: The patient is a 70-year-old man who comes to the emergency department complaining of bilateral leg swelling right greater than left. He states that he 1st noticed over the last day or 2. He is 7 days postop from a L4 through S1 fusion with Dr. Wade. 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 He states that he also has mild shortness of breath and is requiring 2 L of oxygen at home. This has been the case since surgery. He was discharged on oxygen. He does not know why. He has been afebrile. States that his back is feeling better. He no longer has sciatica. REVIEW OF SYSTEMS: Constitutional: denies: chills, fever, recent illness, recent injury EENTM: denies: blurred vision, double vision, nose congestion Respiratory: denies: cough, shortness of breath Cardiac: denies: chest pain, irregular heart rate, lightheadedness, palpitations Gastrointestinal/Abdominal: denies: abdominal pain, diarrhea, nausea, vomiting, blood streaked stools Genitourinary: denies: dysuria, frequency, hematuria, pain Musculoskeletal: See HPI Skin: denies: lesions, rash, jaundice, bruising Neurological: denies: headache, numbness, paresthesia, tingling, dizziness, weakness Hematologic/Lymphatic: denies: blood clots, easy bleeding, easy bruising Immunologic/allergic: denies: HIV/AIDS, transplant EXAM: GENERAL: Well-appearing, well-nourished and in no acute distress. HEAD: Atraumatic, normocephalic. EYES: Pupils equal round and reactive to light, extraocular movements intact, sclera anicteric, conjunctiva are normal. ENT: TMs normal, nares patent, oropharynx clear without exudates. Moist mucous membranes. NECK: Normal range of motion, supple without lymphadenopathy or JVD. LUNGS: Breath sounds clear to auscultation bilaterally and equal. No wheezes rales or rhonchi. HEART: Regular rate and rhythm without murmurs, rubs or gallops. ABDOMEN: Soft, nontender, normoactive bowel sounds. No guarding, no rebound. No masses appreciated. BACK: No CVA tenderness, no spinal tenderness, step-offs or deformities EXTREMITIES: Normal range of motion, mild right-sided swelling, 1+ edema, no pitting, no visible left-sided edema. No clubbing or cyanosis. NEUROLOGICAL: Cranial nerves II through XII grossly intact. Normal speech, normal gait. 5/5 strength, normal movement in all extremities, normal sensation PSYCH: Normal mood, normal affect. SKIN: Warm, dry, normal turgor, no visible rashes or lesions. Source: Patient Exam Limitations: No limitations - Personal History Current Tetanus Diphtheria and Acellular Pertussis (TDAP): Yes Tetanus Vaccine Date: 2007 - Medical/Surgical History Hx Asthma: No Hx Chronic Respiratory Disease: No Hx Diabetes: No Hx Cardiac Disease: No Hx Renal Disease: No Hx Cirrhosis: No Hx Alcoholism: No Hx HIV/AIDS: No Hx Splenectomy or Spleen Trauma: No Other PMH: Prostate cancer; HTN; neuropathy; PE; saddle embolus, DVT, low back pain; L4-5-S1 fusion - Family History Significant Family History: No pertinent family hx - Social History Smoking Status: Never smoked Alcohol Use: Sober Drug Use: None Constitutional: Initial Vital Signs Temperature (C) 36.7 C 07/30/16 12:49 Heart Rate 94 07/30/16 12:49 Respiratory Rate 16 07/30/16 12:49 Blood Pressure 137/99 H 07/30/16 12:49 O2 Sat (%) 94 07/30/16 12:49 O2 Delivery Mode Room Air Allergies/Adverse Reactions: No Known Allergies Allergy (Verified 07/30/16 12:45) Home Medications: Medication Instructions Recorded Fenofibrate,Micronized 200 mg PO DAILY 10/30/14 [Fenofibrate] Losartan Potassium [Cozaar 50 mg 50 mg PO DAILY 10/30/14 (*)] Ascorbic Acid [Vitamin C 500 mg 1,000 mg PO DAILY 05/06/16 (*)] Atorvastatin Calcium [Lipitor 40 40 mg PO DAILY16 05/06/16 mg (*)] Cholecalciferol Vit D3 [Vitamin D3 1,000 units PO DAILY 05/06/16 (*)] Diltiazem HCl [Diltiazem 24Hr Cd] 360 mg PO DAILY 05/06/16 Gabapentin [Neurontin 400 MG (*)] 1,200 mg PO BID 05/06/16 Triamterene/Hydrochlorothiazid 1 each PO DAILY 05/06/16 [Triamterene-Hctz 37.5-25 mg Tb] Vitamin B Complex [B Complex] 1 each PO DAILY 05/06/16 Warfarin Sodium [Jantoven] 2 mg PO DAILY 06/17/16 Acetaminophen [Tylenol 325mg (*)] 325 - 650 mg PO Q4HRS PRN #0 tab 07/25/16 Methocarbamol [Robaxin 750 mg (*)] 750 mg PO QID PRN #60 tab 07/25/16 Polyethylene Glycol 3350 [Miralax 17 gm PO TID #0 pkt 07/25/16 17 gm (*)] Sennosides/Docusate Sodium 1 - 2 tab PO BID #0 tab 07/25/16 [Senokot-S] morphINE SR [Ms Contin/Oramorph 15 15 mg PO BID #90 tab 07/25/16 mg (*)] oxyCODONE IR [Oxycodone Ir (*)] 5 - 10 mg PO Q4-6PRN PRN #90 tab 07/25/16 Medical Decision Making - Diagnostics EKG Interpretation: An EKG obtained and was read and documented in trace view. Please see trace view for full reading and report. Sinus rhythm, no acute ischemic changes or signs of right heart strain. Imaging: Study: Ultrasound of the: Bilateral lower extremities Indication: Lower extremity swelling Results: US scan of the bilateral lower extremities was obtained. The results of the study are negative for DVT. The study was read by the radiologist, Dr. Siddiqui. I viewed the images myself on the PACS system. Results: CT scan of the chest angiogram was obtained. The results of the study are negative. The study was read by Dr. Siddiqui. I viewed the images myself on the PACS system. ED Course/Re-evaluation: Partial list of the Differential diagnosis considered include but were not limited to; PE, DVT, COPD and although unlikely based on the history and physical exam, I also considered infection, pneumothorax, incisional drainage, infection. I discussed these differential diagnoses and the plan with the patient as well as the usual and expected course. The patient understands that the diagnosis is provisional and that in medicine we are not always correct and that further workup is often warranted. Usual and customary warnings were given. All of the patient's questions were answered. The patient was instructed to return to the emergency department should the symptoms at all worsen or return, otherwise to followup with the physician as we discussed. Differential Diagnosis: We discussed the patient's ultrasound results. He is reassured. We will proceed to CT scanning based on his hypoxia since the surgery and mild feeling of dyspnea. We discussed the patient's CT and lab results. He is reassured. His was concerned about the cause of his edema. We discussed the possibilities. Renal and liver function appeared normal. He did have his drain removed day before this swelling started. This may be partially residual from the surgery. He will follow up with his surgeon and they have been contacted him over the phone. Declined further workup or testing at this time. - Data Points Laboratory Results: Laboratory Results 07/30/16 13:36 07/30/16 13:36 Medications Given: Discontinued Medications Oxycodone HCl (Oxycodone Ir) 5 mg PO EDNOW ONE Stop: 07/30/16 17:23 Last Admin: 07/30/16 17:31 Dose: 5 mg Departure - Departure Disposition: Home, Routine, Self-Care Clinical Impression: Lower extremity edema Qualifiers: Laterality: bilateral Qualified Code(s): R60.0 - Localized edema Condition: Fair Instructions: Leg Edema (ED) Referrals: DAVID COOK [Primary Care Provider] - As per Instructions Zach Wagner MD [Medical Doctor] - As per Instructions
--- NOTE | 2016-07-30 13:48 | CPEKG ---
Heart Rate: 83 RR Interval: 723 P-R Interval: 148 QRSD Interval: 102 QT Interval: 356 QTC Interval: 419 P [place]: 34 QRS [place]: 63 T Wave [place]: 23 EKG Severity - NORMAL ECG - EKG Impression: SINUS RHYTHM Electronically Signed By: Ambrose Hirsch 30-Jul-2016 13:51:24
[2016-07-30 13:51] LABS: % IMMATURE GRANULYOCYTES 0.9 % (0.0-1.1); ABSOLUTE IMMATURE GRANULOCYTES 0.09 10^3/uL (0.00-0.10); ADD DIFF? NO; ADD MORPH? NO; ADD SCAN? NO; ATYPICAL LYMPHOCYTE FLAG 0 (0-99); FRAGMENT RBC FLAG 0 (0-99); HEMATOCRIT 29.8 % (40.0-51.0); HEMOGLOBIN 10.4 g/dL (13.7-17.5); LEFT SHIFT FLG 0 (0-99); LIPEMIA HEMOLYSIS FLAG 90 (0-99); MEAN CELL HEMOGLOBIN 30.5 pg (27.9-34.1); MEAN CELL HEMOGLOBIN CONCENTR. 34.9 g/dL (32.4-36.7); MEAN CELL VOLUME 87.4 fL (81.5-99.8); MEAN PLATELET VOLUME 10.5 fL (8.7-11.7); PLATELET CLUMPS FLAG 30 (0-99); PLATELET COUNT 280 10^3/uL (150-400); RED BLOOD CELL COUNT 3.41 10^6/uL (4.40-6.38)
[2016-07-30 14:01] LABS: INR 1.7 (0.83-1.16)
[2016-07-30 14:02] LABS: ANION GAP 8 mEq/L (8-16); APTT 33.1 SEC (23.0-38.0); CALCIUM 9.1 mg/dL (8.5-10.4); CARBON DIOXIDE 27 mEq/l (22-31); CHLORIDE 98 mEq/L (97-110); CREATININE 1.2 mg/dL (0.7-1.3); GLOMERULAR FILTRATION RATE 60; GLUCOSE 166 mg/dL (70-100); POTASSIUM 3.8 mEq/L (3.5-5.2); SODIUM 133 mEq/L (134-144)
[2016-07-30 14:14] LABS: CREATINE KINASE-MB FRACTION 1.29 ng/mL (0-3.19); TROPONIN I < 0.012 ng/mL (0-0.034)
[2016-07-30 15:29] VITALS: PULSE 81; RESP 18
[2016-07-30] MEDS ORDERED: IOPAMIDOL (ISOVUE 370) 100 ML BTL IV ONE (15:41)
[2016-07-30] MEDS ORDERED: oxyCODONE IR 5 MG TAB PO ONE (17:22)
[2016-07-30 17:39] VITALS: BP 142/76; O2SAT 92
== END 2016-07-30 17:38 | disposition home or self-care (01) ==
DX: R60.0 Localized edema (principal); I10 Essential (primary) hypertension; Z85.46 Personal history of malignant neoplasm of prostate; Z86.718 Personal history of other venous thrombosis and embolism; Z79.01 Long term (current) use of anticoagulants
CPT/HCPCS: 71010; 71275; 93005; 93970; 99285; Q9967

== ENCOUNTER → 2016-08-29 | Outpatient (CLI) | payer OTHER | LOC: BHFA 09:30 | PROVIDERS: ATTEND Internal Medicine Interventional Cardiology | DX: R06.09 Other forms of dyspnea (principal) ==

== ENCOUNTER → 2016-12-04 | Outpatient (CLI) | payer OTHER | LOC: FIMAGING 12:26 | PROVIDERS: ATTEND Family Medicine | DX: M79.89 Other specified soft tissue disorders (principal); R07.9 Chest pain, unspecified; Z86.718 Personal history of other venous thrombosis and embolism ==

== ENCOUNTER → 2017-08-27 | Outpatient (CLI) | payer OTHER ==
[~2017-08-27] MED LIST changes: +IOPAMIDOL (ISOVUE-300) 100 ML BTL ONE; -ceFAZolin 2 GM/DEXTROSE 100 ML IV ONE; -fentaNYL 100 MCG/2 ML INJ IT ONE; -morphINE PF 5 MG/10 ML INJ IT ONE
== END ==
LOC: FIMAGING 11:46
PROVIDERS: ATTEND Family Medicine
DX: K57.30 Diverticulosis of large intestine without perforation or abscess without bleeding (principal)
CPT/HCPCS: 74177; Q9967

== ENCOUNTER 2018-04-16 01:08 | Emergency (ER) | payer OTHER ==
--- NOTE | 2018-04-16 02:12 | EDPHY ---
H & P Stated Complaint: Took 200mg of omeprazole instead of 40mg, feels flushed Time Seen by Provider: 04/16/18 02:05 HPI/ROS: HPI The patient presents with . REVIEW OF SYSTEMS 10 systems were reviewed and negative with the exception of the elements mentioned in the history of present illness. PMHx: Soc Hx: FHx: PHYSICAL General Appearance: Alert, no distress Eyes: Pupils equal and round no pallor or injection ENT, Mouth: Mucous membranes moist Respiratory: There are no retractions, lungs are clear to auscultation Cardiovascular: Regular rate and rhythm Gastrointestinal: Abdomen is soft and non-tender, no masses, bowel sounds normal Neurological: A&O, moves all extremities Skin: Warm and dry, no rashes Musculoskeletal: Neck is supple non tender Extremities: symmetrical, full range of motion Psychiatric: Patient is oriented X 3, there is no agitation Source: Patient Exam Limitations: No limitations - Personal History Current Tetanus/Diphtheria Vaccine: Yes Current Tetanus Diphtheria and Acellular Pertussis (TDAP): Yes Tetanus Vaccine Date: 2007 - Medical/Surgical History Hx Asthma: No Hx Chronic Respiratory Disease: No Hx Diabetes: No Hx Cardiac Disease: No Hx Renal Disease: No Hx Cirrhosis: No Hx Alcoholism: No Hx HIV/AIDS: No Hx Splenectomy or Spleen Trauma: No Other PMH: Prostate cancer; HTN; neuropathy; PE; saddle embolus, DVT, low back pain; L4-5-S1 fusion - Social History Smoking Status: Never smoked Constitutional: Initial Vital Signs Temperature (C) 36.5 C 04/16/18 01:13 Heart Rate 81 04/16/18 01:13 Respiratory Rate 16 04/16/18 01:13 Blood Pressure 165/100 H 04/16/18 01:13 O2 Sat (%) 96 04/16/18 01:13 O2 Delivery Mode Room Air Allergies/Adverse Reactions: No Known Allergies Allergy (Verified 04/16/18 01:09) Home Medications: Medication Instructions Recorded Fenofibrate,Micronized 200 mg PO DAILY 10/30/14 [Fenofibrate] Losartan Potassium [Cozaar 50 mg 50 mg PO DAILY 10/30/14 (*)] Ascorbic Acid [Vitamin C 500 mg 1,000 mg PO DAILY 05/06/16 (*)] Atorvastatin Calcium [Lipitor 40 40 mg PO DAILY16 05/06/16 mg (*)] Cholecalciferol Vit D3 [Vitamin D3 1,000 units PO DAILY 05/06/16 (*)] Diltiazem HCl [Diltiazem 24Hr Cd] 360 mg PO DAILY 05/06/16 Gabapentin [Neurontin 400 MG (*)] 1,200 mg PO BID 05/06/16 Warfarin Sodium [Jantoven] 2 mg PO DAILY 06/17/16 Acetaminophen [Tylenol 325mg (*)] 325 - 650 mg PO Q4HRS PRN #0 tab 07/25/16 Polyethylene Glycol 3350 [Miralax 17 gm PO TID #0 pkt 07/25/16 17 gm (*)] Sennosides/Docusate Sodium 1 - 2 tab PO BID #0 tab 07/25/16 [Senokot-S] Medical Decision Making Differential Diagnosis: This is a 72-year-old male who presents from home after taking omeprazole 200 mg about 1 hr ago accidentally now with nausea and flushing. He mistakenly thought this medication was gabapentin and took more than he should have. He has been on this for the last several weeks for a reported stomach ulcer found on endoscopy. Here, we contacted poison Control who recommended symptomatic management only. He found his symptoms to be manageable and he will be discharged home. Departure - Departure Disposition: Home, Routine, Self-Care Clinical Impression: Accidental medication overdose Qualifiers: Encounter type: initial encounter Qualified Code(s): T50.901A - Poisoning by unspecified drugs, medicaments and biological substances, accidental ( unintentional), initial encounter Condition: Good Instructions: Adult Overdose (ED) Additional Instructions: Please avoid taking omeprazole tomorrow. You can resume taking it on Friday. Referrals: DAVID COOK [Primary Care Provider] - As per Instructions
[2018-04-16 02:15] VITALS: BP 151/102
== END 2018-04-16 02:27 | disposition home or self-care (01) ==
DX: R11.0 Nausea (principal); T50.901A Poisoning by unspecified drugs, medicaments and biological substances, accidental (unintentional), initial encounter; I10 Essential (primary) hypertension; G62.9 Polyneuropathy, unspecified; Z98.1 Arthrodesis status

== ENCOUNTER 2018-10-20 18:36 | Emergency (ER) | payer OTHER | END 2018-10-20 21:00 | disposition home or self-care (01) ==